=== PATIENT | female | born 1960 | race Asian ===

== ENCOUNTER 2022-02-12 10:14 | Emergency (ER) | payer OTHER ==
[~2022-02-12] VITALS: Ht 167.6 cm; Wt 88.0 kg
[2022-02-12 10:19] VITALS: TEMP 98.1
[2022-02-12 10:38] LABS: PLATELET COUNT 277 K/uL (152-353)
[2022-02-12 10:55] VITALS: BP 120/85
[2022-02-12] MEDS ORDERED: BENZTROPINE2 MG PO (13:19)
[2022-02-12] MEDS ORDERED: MULTIVITAMIN1 TA1 PO (13:20)
[2022-02-12] MEDS ORDERED: [UNRECOGNIZED DRUG - CODE] PO (13:21)
[2022-02-12] MEDS ORDERED: TEMA30CA18 PO (13:22)
[2022-02-12] MEDS ORDERED: REMERON SOLTAB15 MG PO (13:22)
[2022-02-12] MEDS ORDERED: OLANZAPINE10 M2 PO (13:23)
[2022-02-12] MEDS ORDERED: OLANZAPINE15 MG PO (13:24)
[2022-02-12] MEDS ORDERED: DIVALPROEX500 M1 PO (13:25)
[2022-02-12] MEDS ORDERED: PROVERA5 MG PO (13:26)
[2022-02-12] MEDS ORDERED: HALOPERIDOL2 MG PO (13:26)
[2022-02-12] MEDS ORDERED: QUET100T2 PO (13:27)
[2022-02-12] MEDS ORDERED: HALO5INJ3 IM (13:29)
[2022-02-12] MEDS ORDERED: TYLENOL325 MG PO (13:30)
[2022-02-12] MEDS ORDERED: HYDROXYZINE HYD25 MG PO (13:30)
== END 2022-02-12 10:55 | disposition still patient (30) ==
LOC: ED 10:14
PROVIDERS: Emergency Medicine
DX: R46.89 Other symptoms and signs involving appearance and behavior (principal); F20.89 Other schizophrenia; Z11.52 Encounter for screening for COVID-19; Z04.6 Encounter for general psychiatric examination, requested by authority
CPT/HCPCS: 80053; 81002; 85027; 87635; 93005; 99283; U0003

== ENCOUNTER 2022-10-15 14:35 | Emergency (ER) | payer OTHER ==
[~2022-10-15] VITALS: Ht 167.6 cm; Wt 79.8 kg
[2022-10-15 14:35] VITALS: BP 140/66; TEMP 97.7
[~2022-10-15 14:35] MED LIST: ACET-206 PO; BENZTROPINE2 MG PO; DIVALPROEX500 M1 PO; DIVALPROEX500 MG PO; FAMOTIDINE20 MG PO; FERROUS SULF325 MG PO; HALOPERIDOL2 MG PO; HYDROXYZINE HYD25 MG PO; LORA0.5T17 PO; MAGNSUS68 PO; MULTIVITAMIN1 TA1 PO; OLANZAPINE10 M2 PO; OLANZAPINE10 MG PO; OLANZAPINE15 MG PO; PROVERA5 MG PO; QUET100T2 PO; REMERON SOLTAB15 MG PO; SERT50TA PO; TEMA30CA18 PO; TYLENOL325 MG PO; [UNRECOGNIZED DRUG - CODE] PO
[2022-10-15 14:59] LABS: PLATELET COUNT 236 K/uL (152-353)
[2022-10-15 15:08] LABS: POTASSIUM 3.6 mmol/L (3.6-5.2)
[2022-10-15] MEDS ORDERED: FAMO20TA4 PO (16:26)
[2022-10-15] MEDS ORDERED: DIVA250T PO (16:26)
[2022-10-15] MEDS ORDERED: ZOLOFT25 MG PO (16:28)
[2022-10-15] MEDS ORDERED: EUTHYROX50 MCG PO (16:28)
[2022-10-15] MEDS ORDERED: TEMA30CA18 PO (16:29)
[2022-10-15] MEDS ORDERED: DIVALPROEX500 M1 PO (16:31)
[2022-10-15] MEDS ORDERED: ENSURE PO (16:33)
[2022-10-15] MEDS ORDERED: LORA0.5T17 PO (16:34)
[2022-10-15] MEDS ORDERED: ZYPREXA ZYDI15 MG PO (16:34)
[2022-10-15] MEDS ORDERED: TORSEMIDE20 MG PO (16:36)
== END 2022-10-15 15:30 | disposition still patient (30) ==
LOC: ED 14:35
PROVIDERS: Emergency Medicine
DX: F20.9 Schizophrenia, unspecified (principal); Z02.79 Encounter for issue of other medical certificate
CPT/HCPCS: 80053; 85027; 87635; 93005; 99283; U0003

== ENCOUNTER 2022-12-23 14:55 | Emergency (ER) | payer OTHER ==
[~2022-12-23] VITALS: Ht 167.6 cm; Wt 78.5 kg
[2022-12-23 14:55] VITALS: BP 118/60; TEMP 98
[~2022-12-23 14:55] MED LIST changes: +DIVA250T PO; +DIVALPROEX250 MG PO; +ENSURE PO; +EUTHYROX50 MCG PO; +FAMO20TA4 PO; +FURO20TA67 PO; +HALO1TAB3 PO; +HALO5INJ3 IM; +LEVO0.0529 PO; +MULTTAB52 PO; +OLANZAPINE5 MG PO; +TEMA15CA19 PO; +TORSEMIDE20 MG PO; +ZOLOFT25 MG PO; +ZYPREXA ZYDI15 MG PO
[2022-12-23 16:01] LABS: PLATELET COUNT 271 K/uL (152-353)
[2022-12-23 16:07] LABS: POTASSIUM 3.3 mmol/L (3.6-5.2)
[2022-12-23] MEDS ORDERED: ABILIFY MAINTE400 M1 IM (18:04)
[2022-12-23] MEDS ORDERED: DOCU100C10 PO (18:06)
[2022-12-23] MEDS ORDERED: MIRALAX17 GM PO (18:11)
[2022-12-23] MEDS ORDERED: HALO50IN4 IM (18:15)
[2022-12-23] MEDS ORDERED: ESCI10TA PO (18:20)
[2022-12-23] MEDS ORDERED: RISP50IN IM (18:24)
[2022-12-23] MEDS ORDERED: FERROUS SULF325 M1 PO (18:27)
[2022-12-23] MEDS ORDERED: ZIPR20IN IM (18:36)
[2022-12-23] MEDS ORDERED: MAGNSUS68 PO (18:39)
[2022-12-23] MEDS ORDERED: FURO20TA67 PO (18:45)
[2023-01-06] MEDS ORDERED: ACET-206 PO (10:37)
[2023-01-06] MEDS ORDERED: DOCU100C10 PO (10:38)
[2023-01-06] MEDS ORDERED: DIVALPROEX500 MG PO (10:38)
[2023-01-06] MEDS ORDERED: FAMOTIDINE20 MG PO (10:38)
[2023-01-06] MEDS ORDERED: DIVALPROEX250 MG PO (10:38)
[2023-01-06] MEDS ORDERED: FERROUS SULF325 MG PO (10:39)
[2023-01-06] MEDS ORDERED: HALO50IN4 IM (10:39)
[2023-01-06] MEDS ORDERED: FURO20TA67 PO (10:39)
[2023-01-06] MEDS ORDERED: LORA0.5T17 PO (10:40)
[2023-01-06] MEDS ORDERED: LEVO0.0529 PO (10:40)
[2023-01-06] MEDS ORDERED: POTA20TA4 PO (10:41)
[2023-01-06] MEDS ORDERED: MAGNSUS68 PO (10:41)
[2023-01-06] MEDS ORDERED: RISP50IN IM (10:41)
[2023-01-06] MEDS ORDERED: MEGE40TA32 PO (10:41)
[2023-01-06] MEDS ORDERED: MIRALAX 17GM PAK PO (10:41)
[2023-01-06] MEDS ORDERED: OLAN2.5T2 PO (10:41)
== END 2022-12-23 17:03 | disposition still patient (30) ==
LOC: ED 14:55
PROVIDERS: Family Medicine
DX: F20.89 Other schizophrenia (principal); R45.6 Violent behavior; Z02.79 Encounter for issue of other medical certificate
CPT/HCPCS: 36415; 80053; 81002; 85027; 87635; 93005; 99283; U0003